=== PATIENT | male | born 1945 | race Caucasian/White ===

== ENCOUNTER 2021-05-13 00:28 | Day surgery (SDC) | payer MEDICARE, OTHER, SELFPAY ==
[2021-05-01 13:45] VITALS: BMI 23.9
[2021-05-13 08:59] VITALS: BP 141/74; PULSE 69; RESP 20; TEMP 35.7; O2SAT 97; BMI 24.3
--- NOTE | 2021-05-13 09:05 | WPDANESEPPF ---
Anes - Initial Pre Proc Eval Procedure: Operation Date: 05/13/21 10:00 Proposed Procedures p Screening Colonoscopy - Molina Sosa MD Date/Time: 05/13/21 09:05 Surgeon: Molina Sosa MD Pre Op Diagnosis: neoplasm screening Patient Data Age: 75 Gender: M Height: 1.83 m Weight: 81.5 kg Last Vital Signs Temp 35.7 C L 05/13/21 08:59 Pulse 69 05/13/21 08:59 Resp 20 05/13/21 08:59 BP 141/74 H 05/13/21 08:59 Pulse Ox 97 05/13/21 08:59 Allergies Allergy/AdvReac Type Severity Reaction Status Date / Time No Known Allergies Verified 05/13/21 08:58 Home Medications Medication Instructions Recorded Confirmed Type aspirin 81 mg PO DAILY 05/01/21 05/01/21 History dulaglutide [Trulicity] 3 mg SUBCUT WEEKLY 05/01/21 05/01/21 History glucos sul [id number]-mjw-[id number]-C-Mn 1 cap PO DAILY 05/01/21 05/01/21 History [Glucosamine Chondroitin] lisinopril 5 mg PO DAILY 05/01/21 05/01/21 History magnesium 200 mg PO DAILY 05/01/21 05/01/21 History metformin 500 mg PO BID 05/01/21 05/01/21 History volktsaezqvr-hla-qwhv-FA-vit K 1 tablet PO DAILY 05/01/21 05/01/21 History [Adults Multivitamin] omega-3 fatty acids [Fish Oil] 1,000 mg PO DAILY 05/01/21 05/01/21 History rosuvastatin 20 mg PO DAILY 05/01/21 05/01/21 History vitamin E 400 unit PO DAILY 05/01/21 05/01/21 History Patient hx anesthesia problems: none Family hx anesthesia problems: none Results Review: All pre-operative results and documents have been reviewed as part of the pre-operative evaluation. [facility] Past Medical History Medical History (Updated 05/13/21 @ 09:05 by Salvador Wayne MD) Diabetes Hyperlipidemia Social History Social History Drinks per week: 2 Living arrangements: alone Anes - Eval Final PreProcedure Day of Procedure 05/13/21 09:05 Patient weight: normal Heart: regular rate and rhythm Lungs: clear to auscultation Airway: Mallampati scale class II Neurological: alert and oriented Last oral intake: >/= 8 hours ASA classification: II Emergent: no Anesthetic plan: proceed Anesthesia type and monitoring: general GIVS and standard monitoring Results Review: All pre-operative results and documents have been reviewed as part of the pre-operative evaluation. Informed Consent: The patient's anesthetic plan and its attendant risks and benefits were discussed with the patient/family/POA. Questions were solicited and answers provided to the satisfaction of the patient/family/POA.
[2021-05-13] MEDS: LACTATED RINGERS 1,000 ML 150 ML IV CONT (09:16)
[2021-05-13 09:18] LABS: Glucose Point of Care 180 mg/dl (65-105)
--- NOTE | 2021-05-13 09:23 | PM.HPGS ---
History of Present Illness History of Present Illness Consent: Risks, benefits, and alternatives have been discussed and questions answered. Patient agrees to proceed with procedure. Chief complaint: neoplasm screening Narrative: Mio Stroud is a 75 year old male referred for colon cancer screening. Review of Systems Review of Systems: All systems reviewed & are unremarkable except as noted in HPI and below PMFSH Past Medical History Medical History Diabetes Hyperlipidemia Social History Social History Drinks per week: 2 Living arrangements: alone Meds Home Medications and Allergies Home Medications Medication Instructions Recorded Confirmed Type aspirin 81 mg PO DAILY 05/01/21 05/13/21 History dulaglutide [Trulicity] 3 mg SUBCUT WEEKLY 05/01/21 05/13/21 History glucos sul 9OBb-abh-qjwtp-C-Mn 1 cap PO DAILY 05/01/21 05/13/21 History [Glucosamine Chondroitin] lisinopril 5 mg PO DAILY 05/01/21 05/13/21 History magnesium 200 mg PO DAILY 05/01/21 05/13/21 History metformin 500 mg PO BID 05/01/21 05/13/21 History cnpgpzcqyzap-ibw-fxis-FA-vit K 1 tablet PO DAILY 05/01/21 05/13/21 History [Adults Multivitamin] omega-3 fatty acids [Fish Oil] 1,000 mg PO DAILY 05/01/21 05/13/21 History rosuvastatin 20 mg PO DAILY 05/01/21 05/13/21 History vitamin E 400 unit PO DAILY 05/01/21 05/13/21 History Allergies Allergy/AdvReac Type Severity Reaction Status Date / Time No Known Allergies Verified 05/13/21 08:58 Vital Signs Vital Signs - 24 hr 05/13/21 08:59 Temperature 35.7 C L Pulse Rate 69 Respiratory Rate 20 Blood Pressure 141/74 H Pulse Oximetry 97 Exam Resp: Auscultation: clear to auscultation bilaterally Cardio: Rate: regular rate Rhythm: regular rhythm GI: GI Palp: Yes Soft to palpation and No Tenderness to palpation present (GI) Assessment and Plan Assessment and plan (1) Colon cancer screening: Code(s): Z12.11 - Encounter for screening for malignant neoplasm of colon Status: Acute Assessment and Plan: Colonoscopy with possible biopsy or polypectomy or cautery or injection of substances.
[2021-05-13 09:43] VITALS: BP 90/57; PULSE 62; RESP 20; O2SAT 98
[2021-05-13 09:53] VITALS: BP 98/64; PULSE 55; RESP 17; O2SAT 97
[2021-05-13 10:03] VITALS: BP 108/72; PULSE 58; RESP 18; O2SAT 97
== END 2021-05-13 10:32 | disposition home or self-care (01) ==
PROVIDERS: Visit Provider Internal Medicine Gastroenterology
PROC: 0DJD8ZZ Inspection of Lower Intestinal Tract, Via Natural or Artificial Opening Endoscopic (ICD-10-PCS; CPT 45378; principal; 2021-05-13 10:00)
DX: Z12.11 Encounter for screening for malignant neoplasm of colon (principal); D12.0 Benign neoplasm of cecum; E11.9 Type 2 diabetes mellitus without complications; E78.5 Hyperlipidemia, unspecified; Z79.82 Long term (current) use of aspirin; Z79.84 Long term (current) use of oral hypoglycemic drugs
CPT/HCPCS: 45385; 82948; 88305; J2704; J7120